=== PATIENT | female | born 1950 ===

== ENCOUNTER 2023-05-16 10:26 | Inpatient (IN) | payer MEDICARE, OTHER, SELFPAY ==
[2023-05-16] VITALS (18 sets, daily range): BP systolic 111–148; BP diastolic 47–82; PULSE 88–123; RESP 12; TEMP 34.8–37.1; O2SAT 88–100; BMI 17.6
--- NOTE | ~2023-05-16 | XR_ITS ---
EXAMINATION: XR CHEST CLINICAL INFORMATION: Cough COMPARISON: None available. TECHNIQUE: Frontal view of the chest was obtained. FINDINGS: Tracheostomy in place. Trace bilateral pleural effusions with subjacent atelectasis. Chronic interstitial lung markings. Flattening of the bilateral hemidiaphragms. Bilateral low lung volumes. No pneumothorax. Trachea is midline. Cardiac mediastinal silhouette is not enlarged. Aorta demonstrates atherosclerotic calcifications. Osseous structures are intact. Soft tissues are unremarkable. XR/XR chest 1V IMPRESSION: 1. Tracheostomy in place. 2. Trace bilateral pleural effusions with subjacent atelectasis. 3. Chronic interstitial lung markings. 4. Flattening of the bilateral hemidiaphragms. 5. Bilateral low lung volumes.
--- NOTE | 2023-05-16 11:03 | ECG_ITS ---
Test Reason : TACHY Blood Pressure : / mmHG Vent. Rate : 111 BPM Atrial Rate : 111 BPM P-R Int : 114 ms QRS Dur : 076 ms QT Int : 330 ms P-R-T Axes : 057 038 050 degrees QTc Int : 448 ms Poor data quality Sinus tachycardia RSR' or QR pattern in V1 suggests right ventricular conduction delay Nonspecific T wave abnormality Abnormal ECG When compared with ECG of 31-JAN-2006 06:35, Vent. rate has increased BY 46 BPM T wave amplitude has decreased in Inferior leads Referred By: Generic ED Physician Electronically Signed By:JONA MORAN MD
--- NOTE | 2023-05-16 11:32 | PC.NURSE ---
pt a&o, calm, and cooperative. pt comes from home where she lives with her son who is her primary caregiver. per EMS, 20G placed to pt's RAC and pt given 40 mcg Fentanyl for pain. pt with chronic tracheostomy, on own ventilator. is duck[place], better to speak directly into right ear. pt changed to hospital attire, placed on monitor, and pillows given BL under bottom for pt comfort. pt's trach was found to be covered in brown secretions. trach care completed by Elo respiratory therapist. pt found to be covered in multiple wounds and bruises. bruises to BL lower arms. wounds to BL LE, originally dressed, via wound care per pt, prior to arrival. this RN, Christine, and Nydia undressed all wounds for examination. worse wound to the pt's lateral left knee/thigh. there appears to be two 2x2's packed to wound to coccyx by unknown caregiver. ABD pad applied for pt comfort before MD examination. pt currently resting quietly. MD evaluated pt and examined pt wounds. labs drawn and sent. pt given warm blanket. call ochoa within pt reach. plan of care ongoing.
[2023-05-16 11:44] LABS: MANUAL DIFF FLAG NO
[2023-05-16 11:48] LABS: Basophils Percent Auto 0.2 % (0-2); Eosinophils Percent Auto 0.1 % (0-4); Hematocrit 31.8 % (37.0-47.0); Hemoglobin 8.5 g/dl (12.0-16.0); Imm Gran Abs Auto 0.13 X10*3/uL (0.00-0.03); Imm Gran Pct Auto 0.8 % (0.0-0.4); Lymphocytes Absolute Auto 0.5 X10*3/uL (1.2-4.9); Lymphocytes Percent Auto 2.7 % (20-40); Mean Corpuscular HGB Conc 26.7 g/dl (31.0-35.0); Mean Corpuscular Hemoglobin 20.7 pg (27.0-33.0); Mean Corpuscular Volume 77.4 fL (80.0-98.0); Mean Platelet Volume 8.5 fL (9.4-12.3); Monocytes Absolute Auto 1.1 X10*3/uL (0.1-1.2); Monocytes Percent Auto 6.4 % (2-11); Neutrophils Absolute Auto 15.1 x10*3/uL (2.0-8.3); Neutrophils Percent Auto 89.8 % (45-73); Platelet Count 475 X10*3/uL (160-400); Red Blood Count 4.11 X10*6/uL (4.20-5.50); Red Cell Distribution Width 23.7 % (11.0-16.0); White Blood Count 16.8 X10*3/uL (4.8-10.8)
[2023-05-16 11:57] LABS: Lactic Acid 0.9 mmol/L (0.5-2.0)
[2023-05-16 12:01] LABS: Anion Gap 14 (12-20); Blood Urea Nitrogen 10 mg/dL (9-16); Calcium 9.2 mg/dL (8.4-10.2); Carbon Dioxide 30 mmol/L (22-29); Chloride 101 mmol/L (96-108); Creatinine Clr Calc Pharmacy 66.1; Estimated Glomerular Filt Rate > 60; Glucose Random 122 mg/dL (60-115); Potassium 3.5 mmol/L (3.3-5.1); Sodium 141 mmol/L (135-145)
--- NOTE | 2023-05-16 12:24 | PC.RT ---
pt. arrived to ED from home via EMS. patient poor historian on trach and vent info. unknown how long patient has been trached and mechanically vented. Patient remains on home vent at this time in ED. Pt. currently has size 6 [place] TTS trach. sterile water needs to be used to fill trach cuff on this particular trach. Air CAN NOT be used to fill cuff. Trach care done, dressing, trach ties and in-line suction changed.
--- NOTE | 2023-05-16 12:39 | ED.GENADULT ---
HPI - General Adult General Chief complaint: Wound/Laceration Stated complaint: GLUTEAL SKIN BREAK DOWN,VENT DEPENDENT PER EMS Time Seen by Provider: 05/16/23 11:22 Source: patient and EMS Mode of arrival: EMS History of Present Illness HPI narrative: 73-year-old female who is brought in by EMS for worsening decubitus ulcer in the coccyx and also known to have been hospitalized at [facility] and discharged on 04/23 of this month. Patient reports that her wounds have worsened since having been at [facility]. She denies any fevers or chills and denies any difficulties with her current ventilator. Related Data Home Medications Medication Instructions Recorded Confirmed acetaminophen 300 mg-codeine 30 mg 1 tab PO Q4H PRN Pain 05/16/23 05/16/23 tablet furosemide 20 mg tablet 20 mg PO DAILY 05/16/23 05/16/23 lorazepam 0.5 mg tablet 0.5 mg PO Q6H PRN Anxiety 05/16/23 05/16/23 prednisone 20 mg tablet 20 mg PO DAILY PRN COPD 05/16/23 05/16/23 EXACERBATION silver sulfadiazine 1 % topical 1 appl topical BID 05/16/23 05/16/23 cream (Silvadene) zinc oxide 12 % topical cream 1 appl topical BID 05/16/23 05/16/23 Allergies Allergy/AdvReac Type Severity Reaction Status Date / Time penicillin V Allergy Unknown Verified 05/16/23 12:11 Review of Systems Review of Systems: Pertinent positives and negatives as stated in HPI PMFSH Past Medical History Source: nursing notes reviewed Social History Social History Smoked in Last 30 Days: No Use of substances other than those prescribed or required for medical reasons: No Advance Directives: Yes Advance Directives on File: Yes Advance Directives Date on File: 05/16/23 Physical Exam ED Vital Signs: Vital Signs - 24 hr 05/16/23 10:56 05/16/23 13:43 Temperature 98.7 F Pulse Rate 119 H Respiratory Rate 12 Blood Pressure 148/82 H Pulse Oximetry 100 Oxygen Delivery Method Mechanical Ventilation Trach Collar Fraction of Inspired Oxygen 40 BMI result Body Mass Index 17.6 VITAL SIGNS: Reviewed. GENERAL: Cachectic, well nourished, in no acute distress. HEAD: Normocephalic/atraumatic EYES: PERRLA, EOMI EARS: Ext canals without abnormality NOSE: Nares patent bilateral OROPHARYNX: no oral lesions noted, posterior pharynx clear NECK: Supple, no adenopathy LUNGS: Ventilated with patent trach. SpO2<100> CARDIOVASCULAR: Sinus tachycardic rate and rhythm without noted murmurs ABDOMEN: Soft, non-tender, non-distended with bowel sounds. Sacral occyx pressure wound with foul smell MUSCULOSKELETAL: No tenderness, deformities, or effusions noted on gross inspection. EXTREMITIES: No cyanosis, clubbing or edema. SKIN: Inspection of the skin reveals no rashes, significant ecchymosis noted on all 4 extremities, multiple skin tears located primarily on the lower extremities but the skin tear noted at the left lateral leg appears to be pretty extensive with a black eschar overlying NEUROLOGIC: Alert and oriented x 3. Strength and sensation to light touch were grossly intact x 4. Medications Administered Discontinued Medications Generic Name Dose Route Start Last Admin Trade Name Freq PRN Reason Stop Dose Admin Cefepime HCl 1 gm/ Sodium 50 mls @ 100 mls/hr 05/16/23 12:31 05/16/23 13:38 Chloride IV 05/16/23 13:00 Infused ONCE ONE Infusion Vancomycin HCl 750 mg/ Sodium 265 mls @ 265 mls/hr 05/16/23 12:40 05/16/23 13:40 Chloride IV 05/16/23 13:39 265 mls/hr ONCE ONE Administration Medical Decision Making Medical Decision Making [facility] Narrative: 1103: 73-year-old female with history and clinical presentation, DDX: sepsis, pressure wounds infected, pneumonia, UTI. I reviewed all investigations and hematologic indices are consistent with infection with leukocytosis and left shift, there is a microcytic anemia noted without overt signs of active bleeding. There is an elevated platelet count. Chemistry indices are negative for EDWIN and there is no electrolyte derangement. Urinalysis does demonstrate leukocyte esterase positivity with the presence of bacteria and appears to be a very clean sample. Patient also has extensor sacral coccyx pressure wound with a foul odor as well as pressure wound to the lateral aspect of the left lower leg that is a possible source as well. Patient has received cefepime as well as vancomycin in coverage. 1315: I discussed case with Dr. Pérez, the cloth stretcher, as patient will require placement in the ICU for being on the ventilator even though this is a chronic status. Throughout her stay here in the emergency room she has oxygen needed well and there been no ventilator associated issues. Respiratory therapy has assured that the trach is in good place, clean and working well. Dr. Pérez has accepted admission. Differential Diagnosis Differential Diagnoses: The differential diagnosis associated with the presentation includes Please see the discussion above Admission/Observation Consideration of admission/observation: Escalation of care including admission/observation considered Please see the discussion above Consult Healthcare Provider Management of the patient was discussed with: Benzene Washer Operator Please see the discussion above Lab Data MDM Lab Attestation statement: I reviewed the patient's lab results. Please see the discussion above 05/16/23 11:38 05/16/23 11:38 Labs: Lab Results 05/16/23 05/16/23 Range/Units 11:38 13:09 WBC 16.8 H (4.8-10.8) X10*3/uL RBC 4.11 L (4.20-5.50) X10*6/uL Hgb 8.5 L (12.0-16.0) g/dl Hct 31.8 L (37.0-47.0) % MCV 77.4 L (80.0-98.0) fL MCH 20.7 L (27.0-33.0) pg MCHC 26.7 L (31.0-35.0) g/dl RDW 23.7 H (11.0-16.0) % Plt Count 475 H (160-400) X10*3/uL MPV 8.5 L (9.4-12.3) fL Immature Gran % (Auto) 0.8 H (0.0-0.4) % Neut % (Auto) 89.8 H (45-73) % Lymph % (Auto) 2.7 L (20-40) % [place] % (Auto) 6.4 (2-11) % Eos % (Auto) 0.1 (0-4) % Baso % (Auto) 0.2 (0-2) % Lymph # (Auto) 0.5 L (1.2-4.9) X10*3/uL [place] # (Auto) 1.1 (0.1-1.2) X10*3/uL Eos # (Auto) 0.0 (0.0-0.4) X10*3/uL Baso # (Auto) 0.0 (0.0-0.2) X10*3/uL Abs Immat Gran (auto) 0.13 H (0.00-0.03) X10*3/uL Absolute Neuts (auto) 15.1 H (2.0-8.3) x10*3/uL Absolute Nucleated RBC 0.000 (0.0-0.012) X10*3/uL Nucleated RBC % (auto) 0.0 (0.0-0.2) /100WBC Sodium 141 (135-145) mmol/L Potassium 3.5 (3.3-5.1) mmol/L Chloride 101 (96-108) mmol/L Carbon Dioxide 30 H (22-29) mmol/L Anion Gap 14 (12-20) BUN 10 (9-16) mg/dL Creatinine 0.47 L (0.5-1.4) mg/dL Estim Creat Clear Calc 66.1 Estimated GFR > 60 Random Glucose 122 H (60-115) mg/dL Lactic Acid 0.9 (0.5-2.0) mmol/L Calcium 9.2 (8.4-10.2) mg/dL Urine Color Yellow Urine Appearance Clear Urine pH 7.0 (5.0-9.0) Ur Specific [place] 1.010 (1.005-1.025) Urine Protein Negative (Neg-Trace) mg/dL Urine Glucose (UA) Negative (Negative) mg/dL Urine Ketones 15 (Negative) mg/dL Urine Blood Negative (Negative) Urine Nitrite Negative (Negative) Ur Leukocyte Esterase Moderate (2+) H (Negative) Urine RBC 0-2 (0-2) /HPF Urine WBC 0-5 (0-5) /HPF Ur Squamous Epith Cells 0-2 (0-2) /HPF Urine Bacteria 2+ (None Seen) Hyaline Casts 0-2 (0-2) /LPF Independent Interpretation I performed an independent interpretation of an: EKG Interpretation: Sinus tachycardia, HR-111, no STEMI, [place]/QRS/QTC is within normal limits. Radiology Impression Radiologist Impression: CHEST XR is pending Critical Care Time Critical Care Time Critical Care Time: Yes Total Critical Care Time: 60 Attestation: I personally attest to this time spent taking care of the patient. Discharge Plan Discharge Clinical Impression: Sepsis, Decubitus ulcer, Urinary tract infection Patient Disposition: Admitted As Inpatient
[2023-05-16] MEDS: cefEPime HCl 1 GM in 0.9 % Sodium Chloride 50 ML IV (13:05)
--- NOTE | 2023-05-16 13:09 | PC.NURSE ---
pt difficult stick. multiple attempts for second set of cultures by multiple techs. 22G IV placed to the L wrist by CHARISMA Lawrence and second set of cultures obtained. slight delay in abx admin. abx now hanging per sep.
--- NOTE | 2023-05-16 13:11 | PC.NURSE ---
pt son at bedside. sts pt had trach placed in 2020.
[2023-05-16 13:18] LABS: Appearance Urine Clear; Color Urine Yellow; Glucose Urine UA Negative (Negative); Leukocyte Esterase Urine Moderate (2+) (Negative); Nitrite Urine Negative (Negative); UMIC TRIGGER UACC YES; Urine Blood Negative (Negative); Urine Ketones 15 mg/dL (Negative); Urine Protein Negative (Neg-Trace)
[2023-05-16 13:26] LABS: Bacteria Urine 2+ (None Seen); Hyaline Casts Urine 0-2 /LPF (0-2); RBC Urine 0-2 /HPF (0-2); Squamous Epithelial Cell Urine 0-2 /HPF (0-2); WBC Urine 0-5 /HPF (0-5)
[2023-05-16] MEDS: vancomycin HCL 750 MG in 0.9 % Sodium Chloride 250 ML 265 MG IV (13:40)
--- NOTE | 2023-05-16 14:09 | PM.CCHP ---
History of Present Illness Date of Service: 05/16/23 Attending physician on admission: Inez Pérez Chief Complaint: A deep sacral wound 73-year-old bed-bound female who is on a home ventilator ventilator dependent via a chronic tracheostomy which only gets changed once every 3 months it is an 6. Certainly with a blue cuff and is being cared for by a visiting nurse for the her wounds she has got a number of pressure ulcers on both legs but the deepest most worrisome is the say is the sacral wound which looks like it is a stage IV Longstanding now end-stage COPD ventilator dependent via tracheostomy She did not complain of a sense of fever or shaking chills but but does have a 17,000 white count and mild level of tachycardia but it she does even on the ventilator have a little bit of increased work of breathing not relative to her chronic state it is just her chronic illness there is no acute issue Bedside echo shows normal LV and RV size structure and function with no primary valve or pericardial disease Laboratory work a mean she is anemic hemoglobin about 8.5 Review of Systems Review of Systems: Yes all other systems are reviewed and are negative REPLACED BY [facility] Past Medical History Medical History (Updated 05/16/23 @ 14:57 by Inez Pérez MD) Ventilator dependent Tracheostomy dependence COPD (chronic obstructive pulmonary disease) Social History Social History Smoked in Last 30 Days: No Use of substances other than those prescribed or required for medical reasons: No Advance Directives: Yes Advance Directives on File: Yes Advance Directives Date on File: 05/16/23 Meds Allergies Allergy/AdvReac Type Severity Reaction Status Date / Time penicillin V Allergy Unknown Verified 05/16/23 12:11 Active Medications: Current Medications Lactated Ringer's (Lr) 1,146 mls @ 1,146 mls/hr 30 ml/kg infuse over 1 hr (1146 ml) IV .Q1H ONE Stop: 05/16/23 14:42 Vancomycin HCl 500 mg/ Sodium (Chloride) 110 mls @ 110 mls/hr IV Q12H BRITTNEY Meropenem 500 mg/ Sodium (Chloride) 50 mls @ 100 mls/hr IV Q8H [facility] Pharmacy Consult (Consult Rx Vancomycin Dosing) 1 each MISCELLANE DAILY PRN PRN Reason: Consult order Home Medications Medication Instructions Recorded Confirmed Last Taken Type Lactobacillus acidophilus 1 tab PO DAILY 05/16/23 05/16/23 05/15/23 History acetaminophen 300 mg-codeine 30 mg 1 tab PO Q4H PRN Pain 05/16/23 05/16/23 05/15/23 History tablet acetylcysteine 100 mg/mL (10 %) 4 ml inhalation BID PRN Secretions 05/16/23 05/16/23 Unknown History solution albuterol sulfate 2.5 mg/3 mL 2.5 mg inhalation QID 05/16/23 05/16/23 05/15/23 History (0.083 %) solution for nebulization arformoterol 15 mcg/2 mL solution 2 ml inhalation BID 05/16/23 05/16/23 05/15/23 History for nebulization atorvastatin 40 mg tablet (Lipitor) 40 mg PO DAILY 05/16/23 05/16/23 05/15/23 History azithromycin 500 mg tablet 500 mg PO Q OTHER DAY 05/16/23 05/16/23 05/15/23 History budesonide 1 mg/2 mL suspension 1 mg inhalation DAILY 05/16/23 05/16/23 05/15/23 History for nebulization (Pulmicort) cetirizine 10 mg tablet (Zyrtec) 10 mg PO DAILY 05/16/23 05/16/23 05/15/23 History clotrimazole-betamethasone 1 1 appl topical BID 05/16/23 05/16/23 Unknown History %-0.05 % topical cream collagenase clostridium histo. 250 1 appl topical DAILY 05/16/23 05/16/23 05/15/23 History unit/gram topical ointment (Santyl) furosemide 20 mg tablet 20 mg PO DAILY 05/16/23 05/16/23 05/15/23 History ipratropium 0.5 mg-albuterol 3 mg 3 ml inhalation Q6H PRN SHORTNESS 05/16/23 05/16/23 Unknown History (2.5 mg base)/3 mL nebulization OF BREATH OR WHEEZE soln levothyroxine 25 mcg tablet 25 mcg PO DAILY@0600 05/16/23 05/16/23 05/15/23 History (Synthroid) lorazepam 0.5 mg tablet 0.5 mg PO Q6H PRN Anxiety 05/16/23 05/16/23 05/15/23 History midodrine 10 mg tablet 10 mg PO TID 05/16/23 05/16/23 05/15/23 History prednisone 20 mg tablet 20 mg PO DAILY PRN COPD 05/16/23 05/16/23 Unknown History EXACERBATION silver sulfadiazine 1 % topical 1 appl topical BID 05/16/23 05/16/23 Unknown History cream (Silvadene) simethicone 125 mg chewable tablet 125 mg PO QID PRN FLATULENCE 05/16/23 05/16/23 Unknown History zinc oxide 12 % topical cream 1 appl topical BID 05/16/23 05/16/23 05/15/23 History Physical Exam Vital Signs: Vital Signs: Last Vital Signs Temp 98.7 F 05/16/23 10:56 Pulse 105 H 05/16/23 13:44 Resp 12 05/16/23 13:44 BP 123/71 05/16/23 13:44 Pulse Ox 100 05/16/23 13:44 O2 Del Method Trach Collar 05/16/23 13:44 FiO2 40 05/16/23 13:43 Oxygen Flow Rate 8 05/16/23 10:56 BMI result Body Mass Index 17.6 Awake with good cognitive function Somewhat tachypneic with some accessory muscle use despite support being supported on the vent Bedside echo with class 1 LV function Abdomen benign no organomegaly Deep very necrotic stage IV decubitus ulcer on the buttock and several on her legs but no surrounding cellulitis Results Labs 05/16/23 11:38 05/16/23 11:38 Labs: Laboratory Results - last 24 hr 05/16/23 05/16/23 11:38 13:09 MCV 77.4 L MCH 20.7 L MCHC 26.7 L RDW 23.7 H Plt Count 475 H MPV 8.5 L Immature Gran % (Auto) 0.8 H Neut % (Auto) 89.8 H Lymph % (Auto) 2.7 L [place] % (Auto) 6.4 Eos % (Auto) 0.1 Baso % (Auto) 0.2 Lymph # (Auto) 0.5 L [place] # (Auto) 1.1 Eos # (Auto) 0.0 Baso # (Auto) 0.0 Abs Immat Gran (auto) 0.13 H Absolute Neuts (auto) 15.1 H Absolute Nucleated RBC 0.000 Nucleated RBC % (auto) 0.0 Anion Gap 14 Estim Creat Clear Calc 66.1 Estimated GFR > 60 Random Glucose 122 H Lactic Acid 0.9 Calcium 9.2 Urine Color Yellow Urine Appearance Clear Urine pH 7.0 Ur Specific [place] 1.010 Urine Protein Negative Urine Glucose (UA) Negative Urine Ketones 15 Urine Blood Negative Urine Nitrite Negative Ur Leukocyte Esterase Moderate (2+) H Urine RBC 0-2 Urine WBC 0-5 Ur Squamous Epith Cells 0-2 Urine Bacteria 2+ Hyaline Casts 0-2 Assessment and Plan (1) Urinary tract infection: Status: Acute (2) Decubitus ulcer: Status: Acute (3) Sepsis: Status: Acute (4) COPD (chronic obstructive pulmonary disease): Status: Acute (5) Tracheostomy dependence: Status: Acute (6) Ventilator dependent: Status: Acute Plan Will admit and in the morning get surgical consult for surgical debridement possibly an eventual wound VAC but I think coverage with antibiotic therapy until then but the ventilator itself of course demands are presence in the ICU Time Spent With Patient Time: Total time managing care of this patient today _45___ minutes.
--- NOTE | 2023-05-16 14:30 | PHA.MEDREC ---
Pharmacy Consult ? Medication Reconciliation Pharmacy has completed the medication reconciliation. MED REC COMPLETE USING LIST PROVIDED BY SON. LIST WAS FROM DISCHARGE AT [facility] ON 05/03/23 BUT SON AMMENDED LIST WITH ANY CHANGES MADE SINCE THEN. SON IS PRIMARY CAREGIVER AND STATES LAST DOSE OF MEDICATIONS AT HOME WERE GIVEN 05/15/23.
[2023-05-16] MEDS: HYDROmorphone HCl 0.5 MG/0.5 ML SYRINGE 0.25 MG IVPUSH ×2 (16:55→21:34)
[2023-05-16] MEDS: Ketorolac Tromethamine 15 MG/ML VIAL IVPUSH (17:05)
--- NOTE | 2023-05-16 19:27 | HO.SKINPHOTO ---
1. 1. Location: Coccyx Category: PI Stage: unstageable Length: 5.0 Width: 8.0 Depth: unknown cm 2. 2. Location: left posterior leg/calf Category: venous stasis Stage: Length: 5.0 Width: 1.5 Depth: 0 cm 3. 3. Location: left anterior leg, distal to knee Category: venous stasis Stage: Length: 4.5 Width: 4.0 Depth: cm 4. 4. Location: left lateral knee Category: venous stasis Stage: Length: 9.0 Width: 5.0 Depth: cm 5. 5. Location: Right posterior leg/calf Category: venous stasis Stage: Length: 4.5 Width: 3.0 Depth: cm 6. 6. Location: right medial ankle Category: venous stasis Stage: Length: 3.5 Width: 3.0 Depth: cm 7. 7. Location: right neck, under trach collar. Raised area. Category: pressure injury, MDPI Stage: stage II Length: 5.0 Width: 3.5 Depth: cm 8. 8. Location: anterior neck Category: MDPI Stage: II Length: 1 Width: 1 Depth: cm 9. 9. Location: Right arm Category: skin tear Stage: Length: Width: Depth: cm
[2023-05-16] MEDS: LORazepam 2 MG/ML VIAL 0.5 MG IVPUSH (19:32)
[2023-05-16] MEDS: Albuterol Sulfate (0.083%) 2.5 MG/3 ML VIAL.NEB INHALE (20:42)
[2023-05-16] MEDS: Hydrocortisone Sod Succ/PF 100 MG VIAL 50 MG IVPUSH (21:03)
[2023-05-17] VITALS (35 sets, daily range): BP systolic 97–146; BP diastolic 54–96; PULSE 84–128; RESP 11–20; TEMP 34.3–36.9; O2SAT 88–100; BMI 19.0
[2023-05-17] MEDS: HYDROmorphone HCl 0.5 MG/0.5 ML SYRINGE 0.25 MG IVPUSH ×7 (00:36→23:09)
[2023-05-17] MEDS: LORazepam 2 MG/ML VIAL 0.5 MG IVPUSH ×4 (01:41→23:08)
[2023-05-17] MEDS: vancomycin HCL 750 MG in 0.9 % Sodium Chloride 250 ML 125 MG IV (01:42)
[2023-05-17 04:25] LABS: VBG Base Excess 9.6 mmol/L; VBG HCO3 35 mmol/L (22-26); VBG pCO2 52 mmHg; VBG pH 7.43 (7.32-7.43); VBG pO2 37 mmHg
[2023-05-17 04:36] LABS: Venous Blood Gas Refer to POC result
[2023-05-17 05:02] LABS: Basophils Percent Auto 0.1 % (0-2); Hematocrit 29.3 % (37.0-47.0); Hemoglobin 7.5 g/dl (12.0-16.0); Imm Gran Abs Auto 0.11 X10*3/uL (0.00-0.03); Imm Gran Pct Auto 0.7 % (0.0-0.4); Lymphocytes Absolute Auto 0.2 X10*3/uL (1.2-4.9); MANUAL DIFF FLAG SCAN; Mean Corpuscular HGB Conc 25.6 g/dl (31.0-35.0); Mean Corpuscular Hemoglobin 19.8 pg (27.0-33.0); Mean Corpuscular Volume 77.5 fL (80.0-98.0); Mean Platelet Volume 9.9 fL (9.4-12.3); Monocytes Absolute Auto 0.2 X10*3/uL (0.1-1.2); Monocytes Percent Auto 1.2 % (2-11); Neutrophils Absolute Auto 14.8 x10*3/uL (2.0-8.3); Platelet Count 352 X10*3/uL (160-400); Red Blood Count 3.78 X10*6/uL (4.20-5.50); Red Cell Distribution Width 24.1 % (11.0-16.0); SCAN SMEAR FLAG 1; White Blood Count 15.3 X10*3/uL (4.8-10.8)
[2023-05-17 05:18] LABS: Albumin Level 2.9 g/dL (3.5-5.0); Anion Gap 17 (12-20); Blood Urea Nitrogen 11 mg/dL (9-16); Calcium 9.5 mg/dL (8.4-10.2); Carbon Dioxide 25 mmol/L (22-29); Chloride 103 mmol/L (96-108); Creatinine Clr Calc Pharmacy 75.8; Estimated Glomerular Filt Rate > 60; Glucose Random 123 mg/dL (60-115); Magnesium 1.9 mg/dL (1.6-2.6); Phosphorus 3.1 mg/dL (2.7-4.5); Sodium 141 mmol/L (135-145)
[2023-05-17] MEDS: Levothyroxine Sodium 25 MCG TABLET PO (05:25)
[2023-05-17 05:36] LABS: SLIDE REVIEW VERIFIED
[2023-05-17] MEDS: Albumin Human 25 % 100 ML IV (06:24)
[2023-05-17] MEDS: Hydrocortisone Sod Succ/PF 100 MG VIAL 50 MG IVPUSH (07:47)
[2023-05-17] MEDS: Atorvastatin Calcium 40 MG TABLET PO (07:47)
[2023-05-17] MEDS: Budesonide 0.5 MG/2 ML AMPUL.NEB 1 MG INHALE (08:08)
[2023-05-17] MEDS: Albuterol Sulfate (0.083%) 2.5 MG/3 ML VIAL.NEB INHALE ×4 (08:08→20:34)
--- NOTE | 2023-05-17 10:01 | PM.CCPN ---
Subjective Subjective Date of Service: 05/17/23 Interval History: 73-year-old lady with underlying end-stage COPD home ventilatory support severe tracheostomy, multiple pressure ulcers admitted on 05/16/2023 with worsening decubitus ulcer. patient was started on empiric broad-spectrum antibiotics with cultures pending. Wound care and general surgery evaluations for debridement have been requested. No events overnight. Critical Care Time (minutes): 30 Physical Exam Vital Signs: Vital Signs: Last Vital Signs Temp 98.5 F 05/17/23 08:00 Pulse 93 05/17/23 09:00 Resp 15 05/17/23 09:00 BP 120/87 05/17/23 09:00 Pulse Ox 95 05/17/23 09:00 O2 Del Method Mechanical Ventil ation 05/17/23 09:00 FiO2 30 05/17/23 09:00 Oxygen Flow Rate 8 05/16/23 10:56 BMI result Body Mass Index 19.0 Const: General: no acute distress, alert and awake Eyes: Sclerae: sclerae normal EOM: EOMs intact bilaterally Neck: Neck: Yes no lymphadenopathy and Yes tracheostomy present ( trach on vent) Resp: Effort & Inspection: normal respiratory effort and no respiratory distress Auscultation: clear to auscultation bilaterally Cardio: Rate: tachycardic Rhythm: regular rhythm Heart sounds: no gallops, no murmurs and no rubs GI: Palpation (GI): Soft to palpation and Other GI palpation findings present ( Nontender) Auscultation: normal bowel sounds Extrem: General: Yes no pedal edema, No clubbing and No cyanosis Objective Data Labs 05/17/23 04:20 05/17/23 04:20 Labs: Laboratory Results - last 24 hr 05/16/23 05/16/23 05/17/23 11:38 13:09 04:20 WBC 16.8 H 15.3 H RBC 4.11 L 3.78 L Hgb 8.5 L 7.5 L Hct 31.8 L 29.3 L MCV 77.4 L 77.5 L MCH 20.7 L 19.8 L MCHC 26.7 L 25.6 L RDW 23.7 H 24.1 H Plt Count 475 H 352 D MPV 8.5 L 9.9 Immature Gran % (Auto) 0.8 H 0.7 H Neut % (Auto) 89.8 H 97.0 H Lymph % (Auto) 2.7 L 1.0 L [place] % (Auto) 6.4 1.2 L Eos % (Auto) 0.1 0.0 Baso % (Auto) 0.2 0.1 Lymph # (Auto) 0.5 L 0.2 L [place] # (Auto) 1.1 0.2 Eos # (Auto) 0.0 0.0 Baso # (Auto) 0.0 0.0 Abs Immat Gran (auto) 0.13 H 0.11 H Absolute Neuts (auto) 15.1 H 14.8 H Absolute Nucleated RBC 0.000 0.000 Nucleated RBC % (auto) 0.0 0.0 Smear Tech's Comments VERIFIED VBG pH 7.43 VBG pCO2 52 VBG pO2 37 VBG HCO3 35 H VBG O2 Saturation 66.0 VBG Base Excess 9.6 Sodium 141 141 Potassium 3.5 4.0 Chloride 101 103 Carbon Dioxide 30 H 25 Anion Gap 14 17 BUN 10 11 Creatinine 0.47 L 0.41 L Estim Creat Clear Calc 66.1 75.8 Estimated GFR > 60 > 60 Random Glucose 122 H 123 H Lactic Acid 0.9 Calcium 9.2 9.5 Phosphorus 3.1 Magnesium 1.9 Albumin 2.9 L Urine Color Yellow Urine Appearance Clear Urine pH 7.0 Ur Specific [place] 1.010 Urine Protein Negative Urine Glucose (UA) Negative Urine Ketones 15 Urine Blood Negative Urine Nitrite Negative Ur Leukocyte Esterase Moderate (2+) H Urine RBC 0-2 Urine WBC 0-5 Ur Squamous Epith Cells 0-2 Urine Bacteria 2+ Hyaline Casts 0-2 Progress Note: A&P Assessment and plan (1) Ventilator dependent: Status: Acute (2) COPD (chronic obstructive pulmonary disease): Status: Acute (3) Decubitus ulcer: Status: Acute Plan Assessment: 73-year-old lady with underlying advanced COPD on chronic ventilatory support admitted for worsening of underlying multiple pressure ulcers, now on empiric broad-spectrum antibiotics. Plan: Neuro: No acute issues. Cardiac: No acute issues. Pulmonary: Advanced ventilator dependent COPD. Continue ventilatory support via tracheostomy. Renal: No acute issues. Endo: No acute issues. GI: No acute issues. ID: Multiple pressure ulcers with particularly worse and coccygeal also. Wound care / general surgery evaluations requested. Cultures are pending. Continue broad-spectrum antibiotic. Heme/Onc: No acute issues. Psych: No acute issues. Miscellaneous: No acute issues. Prophylaxis: Heparin Diet: regular Critical care time spent: 30 minutes Quality Stroke Does the patient have a stroke diagnosis?: No VTE Prior VTE?: No VTE Risk Level:: Medical - moderate - high VTE Device Contraindication: N/A - Device Ordered VTE Drug Contraindication: Treatment Not Indicated
[2023-05-17] MEDS: Heparin Sodium,Porcine 5,000 UNIT/ML VIAL 5000 UNIT SUBCUT ×2 (10:34→16:56)
[2023-05-17] MEDS: levoFLOXacin/D5W 750 MG/150 ML PIGGYBACK 100 MG IV (10:38)
--- NOTE | 2023-05-17 11:29 | MHC.CM.PN ---
Pt in ICU w/ chronic vent and infected sacral wound: met w/pt and one of her home caregivers to review d/c needs: pt resides w/son, has EMERGENCY MANAGEMENT SYSTEM DIRECTOR care givers and VNA for wound care. Unknown VNA but RN is Maite at [phone]: message left inquiring on agency. has a chronic trach w/[employer] suppling O2 and supplies. She is bedbound (hospital bed) and has all needed DME per skin care consultant. Pt uses BLS for all transportation needs. Pt w/multiple skin impairment issues, fragile overall condition. HCP on file and verified: IMM in chart. D/C plan is for a return to home w/existing supports/services. BLS/ALS transport depending on [facility]'s policy.
--- NOTE | 2023-05-17 12:10 | P.CONGS_ITS ---
History of Present Illness Consult details Consult date: 05/17/23 Narrative: 73-year-old female patient with a history of COPD, ventilatory dependent with tracheostomy in place, presenting to the emergency department by EMS due to worsening skin wounds over multiple locations but most significantly in the sacral and coccyx regions. She was previously evaluated and treated in [facility] and subsequently discharged on 04/23/2023. Since this time wounds have increased in size and appear to require further debridement. She denies fever, chills, and is awake/alert, requiring ventilatory support. Per her family member no wounds were in noted on her back prior to admission to [facility]. Review of Systems 2 Review of Systems: Yes Unobtainable due to mental condition PMFSH Past Medical History Medical History Ventilator dependent Tracheostomy dependence COPD (chronic obstructive pulmonary disease) Social History Social History Household Members: Children Housing: House Do you presently have visiting nurse or other home services: Yes (Kostas LINDSEY) Patient Tobacco Use Status: Former Tobacco user Quit Date: 9 years ago Tobacco use type: Cigarette Advance Directives Date on File: 05/16/23 Meds Allergies Allergy/AdvReac Type Severity Reaction Status Date / Time penicillin V Allergy Unknown Verified 05/16/23 12:11 Active Medications: Current Medications Albuterol Sulfate (Albuterol Sulfate (0.083%) 2.5 Mg/3 Ml Vial.Neb) 2.5 mg INHALE QID [facility] Last Admin: 05/17/23 08:08 Dose: 2.5 mg Atorvastatin Calcium (Atorvastatin Calcium 40 Mg Tablet) 40 mg PO DAILY [facility] Last Admin: 05/17/23 07:47 Dose: 40 mg Budesonide (Budesonide 0.5 Mg/2 Ml Ampul.Neb) 1 mg INHALE DAILY [facility] Last Admin: 05/17/23 08:08 Dose: 1 mg Heparin Sodium (Porcine) (Heparin Sodium,Porcine 5,000 Unit/Ml Vial) 5,000 unit SUBCUT Q8H [facility] Last Admin: 05/17/23 10:34 Dose: 5,000 unit Hydromorphone HCl (Hydromorphone Hcl 0.5 Mg/0.5 Ml Syringe) 0.25 mg IVPUSH Q3H PRN; Protocol PRN Reason: Pain, Moderate(Pain Scale 4-6) Last Admin: 05/17/23 10:34 Dose: 0.25 mg Vancomycin HCl 750 mg/ Sodium (Chloride) 265 mls @ 265 mls/hr IV Q12H [facility] Last Infusion: 05/17/23 03:50 Dose: Infused Levofloxacin (Levaquin) 750 mg in 150 mls @ 100 mls/hr IV Q24H [facility] Last Admin: 05/17/23 10:38 Dose: 100 mls/hr Levothyroxine Sodium (Levothyroxine Sodium 25 Mcg Tablet) 25 mcg PO DAILY@0600 [facility] Last Admin: 05/17/23 05:25 Dose: 25 mcg Lorazepam (Lorazepam 2 Mg/Ml Vial) 0.5 mg IVPUSH Q6H PRN PRN Reason: Anxiety Last Admin: 05/17/23 09:51 Dose: 0.5 mg Pharmacy Consult (Consult Rx Vancomycin Dosing) 1 each MISCELLANE DAILY PRN PRN Reason: Consult order Home Medications Medication Instructions Recorded Confirmed Last Taken Type Lactobacillus acidophilus 1 tab PO DAILY 05/16/23 05/16/23 05/15/23 History acetaminophen 300 mg-codeine 30 mg 1 tab PO Q4H PRN Pain 05/16/23 05/16/23 05/15/23 History tablet acetylcysteine 100 mg/mL (10 %) 4 ml inhalation BID PRN Secretions 05/16/23 05/16/23 Unknown History solution albuterol sulfate 2.5 mg/3 mL 2.5 mg inhalation QID 05/16/23 05/16/23 05/15/23 History (0.083 %) solution for nebulization arformoterol 15 mcg/2 mL solution 2 ml inhalation BID 05/16/23 05/16/23 05/15/23 History for nebulization atorvastatin 40 mg tablet (Lipitor) 40 mg PO DAILY 05/16/23 05/16/23 05/15/23 History azithromycin 500 mg tablet 500 mg PO Q OTHER DAY 05/16/23 05/16/23 05/15/23 History budesonide 1 mg/2 mL suspension 1 mg inhalation DAILY 05/16/23 05/16/23 05/15/23 History for nebulization (Pulmicort) cetirizine 10 mg tablet (Zyrtec) 10 mg PO DAILY 05/16/23 05/16/23 05/15/23 History clotrimazole-betamethasone 1 1 appl topical BID 05/16/23 05/16/23 Unknown History %-0.05 % topical cream collagenase clostridium histo. 250 1 appl topical DAILY 05/16/23 05/16/23 05/15/23 History unit/gram topical ointment (Santyl) furosemide 20 mg tablet 20 mg PO DAILY 05/16/23 05/16/23 05/15/23 History ipratropium 0.5 mg-albuterol 3 mg 3 ml inhalation Q6H PRN SHORTNESS 05/16/23 05/16/23 Unknown History (2.5 mg base)/3 mL nebulization OF BREATH OR WHEEZE soln levothyroxine 25 mcg tablet 25 mcg PO DAILY@0600 05/16/23 05/16/23 05/15/23 History (Synthroid) lorazepam 0.5 mg tablet 0.5 mg PO Q6H PRN Anxiety 05/16/23 05/16/23 05/15/23 History midodrine 10 mg tablet 10 mg PO TID 05/16/23 05/16/23 05/15/23 History prednisone 20 mg tablet 20 mg PO DAILY PRN COPD 05/16/23 05/16/23 Unknown History EXACERBATION silver sulfadiazine 1 % topical 1 appl topical BID 05/16/23 05/16/23 Unknown History cream (Silvadene) simethicone 125 mg chewable tablet 125 mg PO QID PRN FLATULENCE 05/16/23 05/16/23 Unknown History zinc oxide 12 % topical cream 1 appl topical BID 05/16/23 05/16/23 05/15/23 History Physical Exam 2 Vital Signs: Vital Signs: Last Vital Signs Temp 98.5 F 05/17/23 08:00 Pulse 109 H 05/17/23 10:00 Resp 20 05/17/23 10:00 BP 123/86 05/17/23 10:00 Pulse Ox 93 05/17/23 10:00 O2 Del Method Mechanical Ventil ation 05/17/23 10:00 FiO2 30 05/17/23 10:00 Oxygen Flow Rate 8 05/16/23 10:56 BMI result Body Mass Index 19.0 Const: General: alert and anxious Nutritional Appearance: well nourished Neck: Other: Tracheostomy in place, dressing located Resp: Other: Breathing on vent Back/Spine/Pelvis: Other: Sacral/coccygeal decubitus ulcer measuring approximately 9 x 7 cm with an area of necrotic measuring approximately 4 cm in diameter in the central portion of the wound. Palpable coccyx is noted at the wound base with no overlying tissue appreciated. Surrounding subcutaneous tissue and reveal some mild fibrinous exudate but no necrotic tissue. The necrotic skin and subcutaneous tissue was excised using a scissors. Bony tissue is noted at the wound base. Back/spine/pelvis image: 1. 2. Necrotic tissue within the central po rtion of the decubitus ulcer. Results Labs 05/17/23 04:20 05/17/23 04:20 Labs: Abnormal lab results 05/16/23 05/17/23 Range/Units 13:09 04:20 WBC 15.3 H (4.8-10.8) X10*3/uL RBC 3.78 L (4.20-5.50) X10*6/uL Hgb 7.5 L (12.0-16.0) g/dl Hct 29.3 L (37.0-47.0) % MCV 77.5 L (80.0-98.0) fL MCH 19.8 L (27.0-33.0) pg MCHC 25.6 L (31.0-35.0) g/dl RDW 24.1 H (11.0-16.0) % Immature Gran % (Auto) 0.7 H (0.0-0.4) % Neut % (Auto) 97.0 H (45-73) % Lymph % (Auto) 1.0 L (20-40) % [place] % (Auto) 1.2 L (2-11) % Lymph # (Auto) 0.2 L (1.2-4.9) X10*3/uL Abs Immat Gran (auto) 0.11 H (0.00-0.03) X10*3/uL Absolute Neuts (auto) 14.8 H (2.0-8.3) x10*3/uL VBG HCO3 35 H (22-26) mmol/L Creatinine 0.41 L (0.5-1.4) mg/dL Random Glucose 123 H (60-115) mg/dL Albumin 2.9 L (3.5-5.0) g/dL Ur Leukocyte Esterase Moderate (2+) H (Negative) Short CBC 05/17/23 Range/Units 04:20 WBC 15.3 H (4.8-10.8) X10*3/uL Hgb 7.5 L (12.0-16.0) g/dl Hct 29.3 L (37.0-47.0) % Plt Count 352 D (160-400) X10*3/uL BMP 05/17/23 04:20 Sodium 141 Potassium 4.0 Chloride 103 Carbon Dioxide 25 BUN 11 Creatinine 0.41 L Calcium 9.5 Liver Function 05/17/23 Range/Units 04:20 Albumin 2.9 L (3.5-5.0) g/dL Urine 05/16/23 Range/Units 13:09 Urine Color Yellow Urine Appearance Clear Urine pH 7.0 (5.0-9.0) Ur Specific [place] 1.010 (1.005-1.025) Urine Protein Negative (Neg-Trace) mg/dL Urine Glucose (UA) Negative (Negative) mg/dL All other labs normal. Assessment and Plan (1) Decubitus ulcer: Qualifiers: Pressure injury location: sacral region Pressure injury stage: stage 4 Qualified Code(s): L89.154 - Pressure ulcer of sacral region, stage 4 Status: Acute (2) Ventilator dependent: Status: Acute Plan 73-year-old female patient with history of COPD, ventilator dependent, with a recent development of a sacral decubitus ulcer found to have areas of necrosis which were debrided today at the bedside. An area of skin and subcutaneous tissue was debrided measuring 4 x 4 cm. Minimal viable tissue was noted below with bone evident at the base of the wound suggestive of a stage IV ulceration. Recommend continuing local wound care with pressure reduction, rotation from side to side, and nutrition support. Wounds will be very difficult to heal given the patient's overall debilitated status. Time Spent With Patient Time: Total time managing care of this patient today ____ minutes. Procedures Date of Service Date of Service: 05/17/23
--- NOTE | 2023-05-17 13:55 | HE.PHANOTE ---
RE VANCO DOSING RENAL FUNCTION STABLE WITH SCR 0.41 TODAY. RANDOM LEVEL TODAY 11.0 BUT THIS IS ONLY AFTER 2 DOSES HAVE BEEN GIVEN. PT IS VERY TINY AND VERY SICK SO WE ARE UNSURE IF RENAL FUNCTION IS ACCURATELY DEPICTED WITH SCR. CONTINUE CURRENT REGIMEN AND RECHECK LEVEL 05/18 @1200
[2023-05-17] MEDS: vancomycin HCL 750 MG in 0.9 % Sodium Chloride 250 ML 265 MG IV (15:35)
--- NOTE | 2023-05-17 16:25 | HO.WOUND ---
Wound Consult: Initial 73yr old female admitted to [facility] on? 05/16/23 13:44- See progress notes and H&P for detailed history. Arrival to bedside pt was accompanied by her two Home PCT - they were able to provide valuable information during the consultation. They report the pt refused placement in her bed at home - they report she is in a recliner chair to sleep and during the day, but that she does own a hospital grade bed. They report she was advised to go in to the bed to aid in off loading but that she refuses. Additionally the patient had bedside debridement performed today to the Coccyx area by Dr. Strauss - see note for details. The patient has a number of wounds Present on Admission - some are resolving and some appear to be evolving. Inpt will continue to follow up while pt remains inpatient. Device related Unstageable Pressure Injury POA Measurements: See measurement details in charting Wound Bed: adherent yellow slough - moist Drainage / Odor: Scant serous drainage no odor noted Edges: ?irregular consisitent with trach tubing Bernadette wound: ?red blanchable intact thin fragile tissue No Induration, No Fluctuance, No Warmth Pain: Pt tolerated assessment Goals of Treatment: ? Moist wound healing and autolytic debridement Left Ankle - healed tissue healed abrasion - dry hyperpigmented tissue easily removed during cleaning to reveal intact tissue Left Lateral Knee - Unstageble Pressure Injury POA Measurements: See measurement details in charting Wound Bed: red moist wound bed - the inferior area of moist black wound bed pigmentation Drainage / Odor: serosang no odor noted Edges: ?irregular Bernadette wound: ? intact thin fragile tissue with noted ecchymosis No Induration, No Fluctuance, No Warmth Pain: Pt reports significant pain throughout assessment Goals of Treatment: ? Moist wound healing and autolytic debridement Left Medial Posterior Leg - Intact tissue after cleansing healed abrasion - dry hyperpigmented tissue easily removed during cleaning to reveal intact tissue Left posterior Leg - Intact tissue after cleansing healed abrasion - dry hyperpigmented tissue easily removed during cleaning to reveal intact tissue Right Arm Skin Tear Measurements: See measurement details in charting Wound Bed: partial thickness tissue loss with pale moist wound bed Drainage / Odor: Scant serosang no odor noted Edges: ?irregular Bernadette wound: ? purpura vs eccyhmosis No Induration, No Fluctuance, No Warmth Pain: Pt reports significant pain throughout assessment Goals of Treatment: ? Moist wound healing and autolytic debridement Right Neck - Device Related Stage 2 Pressure Injury POA Measurements: See measurement details in charting Wound Bed: red moist wound bed - clean Drainage / Odor: Scant serosang no odor noted Edges: ?irregular Bernadette wound: ? intact thin fragile tissue No Induration, No Fluctuance, No Warmth Pain: Pt reports significant pain throughout assessment Goals of Treatment: ? Moist wound healing and autolytic debridement Coccyx - Stage 4 Pressure Injury POA Measurements: See measurement details in charting Wound Bed: Palpable bone - necrotic yellow brown slough - bedside debridement performed by Dr. Strauss see note for details. Drainage / Odor: Scant serosang no odor noted Edges: ?irregular nonadherent Bernadette wound: ? red erythema - slow to angela No Induration, No Fluctuance, No Warmth Pain: Pt reports significant pain throughout assessment Goals of Treatment: ? Moist wound healing and autolytic debridement Right Lateral Leg - Intact after cleaning healed abrasion - dry hyperpigmented tissue easily removed during cleaning to reveal intact tissue Recommendations: 1. Turn and Reposition every 2 hours and as needed for patient comfort consider use of wedges available in the storeroom. 2. Off Load all bony prominences with use of pillows, wedges and heel boots. If up to chair limit sit time to 1 hr increments. 3. Monitor for incontinence and moisture control. 4. Provide adequate and supplemental nutrition. 5. Continue low air loss mattress. 6. Coccyx - Off Load Pressure - Cleanse and irrigate with saline. Apply Triad to periwound - pack wound bed with NS moist gauze, cover with dry gauze to fill space and cover with foam dressing. Change Daily and PRN. 7. Right Arm and Right Leg - Cleanse with NS. Apply skin prep to periwound. Apply double layer xeroform cover with dry gazue, ABD pad and gauze roll. Change Daily. 8. Right Neck - Cleanse with NS. Apply skin prep to periwound. Apply double layer xeroform cover with foam dressing to aid in off loading. Change Daily. 9. Trach Site - Cleanse with NS. Apply skin prep to periwound. Apply cut to size Durafiber AG cover with Hydrocolloid. Cover additionally with foam dressing to aid in off loading pressure. Change every 2 days. 10. Left Lateral Knee - Cleanse with NS. Apply skin prep to periwound. Apply Durafiber AG cover with dry gauze, ABD pad and gauze roll. Change Daily. 11. Bilateral Lower Legs - Cleanse with routine cleansing. Apply moisturizing lotion twice a day. Protect legs from friction and trauma. Elevate heels off of bed surface. Re-consult wound care Nurse for wound deterioration or wound changes.
[2023-05-18] VITALS (36 sets, daily range): BP systolic 98–144; BP diastolic 47–83; PULSE 87–127; RESP 12–29; TEMP 34.4–37; O2SAT 83–100
[2023-05-18] MEDS: vancomycin HCL 750 MG in 0.9 % Sodium Chloride 250 ML 125 MG IV ×2 (02:12→13:08)
[2023-05-18] MEDS: Heparin Sodium,Porcine 5,000 UNIT/ML VIAL 5000 UNIT SUBCUT ×3 (02:19→17:54)
[2023-05-18 04:41] LABS: VBG HCO3 37 mmol/L (22-26); VBG pCO2 43 mmHg; VBG pH 7.54 (7.32-7.43); VBG pO2 52 mmHg
[2023-05-18 04:43] LABS: Venous Blood Gas Refer to POC result
[2023-05-18 04:48] LABS: MANUAL DIFF FLAG NO
[2023-05-18 04:51] LABS: Basophils Percent Auto 0.2 % (0-2); Eosinophils Percent Auto 0.2 % (0-4); Hematocrit 25.2 % (37.0-47.0); Imm Gran Abs Auto 0.06 X10*3/uL (0.00-0.03); Imm Gran Pct Auto 0.5 % (0.0-0.4); Lymphocytes Absolute Auto 0.5 X10*3/uL (1.2-4.9); Lymphocytes Percent Auto 3.9 % (20-40); Mean Corpuscular HGB Conc 26.6 g/dl (31.0-35.0); Mean Corpuscular Hemoglobin 20.4 pg (27.0-33.0); Mean Corpuscular Volume 76.6 fL (80.0-98.0); Mean Platelet Volume 8.9 fL (9.4-12.3); Monocytes Absolute Auto 0.9 X10*3/uL (0.1-1.2); Monocytes Percent Auto 7.3 % (2-11); Neutrophils Percent Auto 87.9 % (45-73); Platelet Count 347 X10*3/uL (160-400); Red Blood Count 3.29 X10*6/uL (4.20-5.50); White Blood Count 12.5 X10*3/uL (4.8-10.8)
[2023-05-18 04:54] LABS: Hemoglobin 6.7 g/dl (12.0-16.0)
[2023-05-18 05:21] LABS: Anion Gap 13 (12-20); Blood Urea Nitrogen 8 mg/dL (9-16); Calcium 9.6 mg/dL (8.4-10.2); Carbon Dioxide 27 mmol/L (22-29); Chloride 103 mmol/L (96-108); Creatinine Clr Calc Pharmacy 87.6; Estimated Glomerular Filt Rate > 60; Glucose Random 69 mg/dL (60-115); Magnesium 1.8 mg/dL (1.6-2.6); Phosphorus 1.7 mg/dL (2.7-4.5); Potassium 3.1 mmol/L (3.3-5.1); Sodium 140 mmol/L (135-145)
[2023-05-18] MEDS: HYDROmorphone HCl 0.5 MG/0.5 ML SYRINGE 0.25 MG IVPUSH ×4 (06:51→19:17)
[2023-05-18] MEDS: Levothyroxine Sodium 25 MCG TABLET PO (06:52)
[2023-05-18] MEDS: Potassium Phosphate/NS 15 MMOL/250 ML PLAST..BAG 62.5 MMOL IV (06:53)
[2023-05-18] MEDS: LORazepam 2 MG/ML VIAL 0.5 MG IVPUSH ×3 (07:05→20:49)
[2023-05-18] MEDS: Albuterol Sulfate (0.083%) 2.5 MG/3 ML VIAL.NEB INHALE ×4 (07:20→20:03)
[2023-05-18] MEDS: Budesonide 0.5 MG/2 ML AMPUL.NEB 1 MG INHALE (07:21)
[2023-05-18] MEDS: Atorvastatin Calcium 40 MG TABLET PO (09:39)
[2023-05-18] MEDS: Albumin Human 25 % 100 ML IV ×3 (09:39→19:17)
[2023-05-18] MEDS: Lactulose 20 GM/30 ML SOLUTION 30 GM PO (10:33)
[2023-05-18] MEDS: Midazolam HCl/PF 2 MG/2 ML VIAL 0.5 MG IVPUSH (10:35)
[2023-05-18] MEDS: levoFLOXacin/D5W 750 MG/150 ML PIGGYBACK 100 MG IV (10:43)
[2023-05-18 12:19] LABS: Vancomycin Random 17.4 mcg/mL (15-20)
--- NOTE | 2023-05-18 15:32 | P.PNCC_ITS ---
Subjective Subjective Date of Service: 05/18/23 Interval History: 73-year-old lady with underlying end-stage COPD home ventilatory support severe tracheostomy, multiple pressure ulcers admitted on 05/16/2023 with worsening decubitus ulcer. Patient was started on empiric broad-spectrum antibiotics with cultures pending. Wound care and general surgery consulted with patient having bedside debridement of her stage IV coccygeal pressure ulcer. No events overnight. Critical Care Time (minutes): 30 Physical Exam 2 Vital Signs: Vital Signs: Last Vital Signs Temp 98.4 F 05/18/23 15:14 Pulse 116 H 05/18/23 15:14 Resp 12 05/18/23 15:14 BP 120/66 05/18/23 15:14 Pulse Ox 95 05/18/23 15:00 O2 Del Method Mechanical Ventil ation 05/18/23 15:00 FiO2 30 05/18/23 15:28 Oxygen Flow Rate 8 05/16/23 10:56 BMI result Body Mass Index 20.0 Const: General: no acute distress, alert and awake Eyes: Sclerae: sclerae normal EOM: EOMs intact bilaterally Neck: Neck: Yes no lymphadenopathy and Yes tracheostomy present ( tracheostomy on vent) Resp: Effort & Inspection: normal respiratory effort and no respiratory distress Auscultation: clear to auscultation bilaterally Cardio: Rate: tachycardic Rhythm: regular rhythm Heart sounds: no gallops, no murmurs and no rubs GI: Palpation (GI): Soft to palpation and Other GI palpation findings present ( Nontender) Auscultation: normal bowel sounds Extrem: General: Yes no pedal edema, No clubbing and No cyanosis Objective Data Labs 05/18/23 04:36 05/18/23 04:36 Labs: Laboratory Results - last 24 hr 05/18/23 05/18/23 05/18/23 04:35 04:36 05:47 WBC 12.5 H RBC 3.29 L Hgb 6.7 L* Hct 25.2 L MCV 76.6 L MCH 20.4 L MCHC 26.6 L RDW 23.0 H Plt Count 347 MPV 8.9 L Immature Gran % (Auto) 0.5 H Neut % (Auto) 87.9 H Lymph % (Auto) 3.9 L [place] % (Auto) 7.3 Eos % (Auto) 0.2 Baso % (Auto) 0.2 Lymph # (Auto) 0.5 L [place] # (Auto) 0.9 Eos # (Auto) 0.0 Baso # (Auto) 0.0 Abs Immat Gran (auto) 0.06 H Absolute Neuts (auto) 11.0 H Absolute Nucleated RBC 0.000 Nucleated RBC % (auto) 0.0 VBG pH 7.54 H VBG pCO2 43 VBG pO2 52 VBG HCO3 37 H VBG O2 Saturation 89.0 VBG Base Excess 14.0 Sodium 140 Potassium 3.1 L D Chloride 103 Carbon Dioxide 27 Anion Gap 13 BUN 8 L Creatinine 0.38 L Estim Creat Clear Calc 87.6 Estimated GFR > 60 Random Glucose 69 Calcium 9.6 Phosphorus 1.7 L Magnesium 1.8 Albumin 3.0 L Random Vancomycin Blood Type B Positive Antibody Screen NEGATIVE Crossmatch See Detail 05/18/23 12:03 WBC RBC Hgb Hct MCV MCH MCHC RDW Plt Count MPV Immature Gran % (Auto) Neut % (Auto) Lymph % (Auto) [place] % (Auto) Eos % (Auto) Baso % (Auto) Lymph # (Auto) [place] # (Auto) Eos # (Auto) Baso # (Auto) Abs Immat Gran (auto) Absolute Neuts (auto) Absolute Nucleated RBC Nucleated RBC % (auto) VBG pH VBG pCO2 VBG pO2 VBG HCO3 VBG O2 Saturation VBG Base Excess Sodium Potassium Chloride Carbon Dioxide Anion Gap BUN Creatinine Estim Creat Clear Calc Estimated GFR Random Glucose Calcium Phosphorus Magnesium Albumin Random Vancomycin 17.4 Blood Type Antibody Screen Crossmatch Microbiology Microbiology Results: Microbiology 05/16/23 13:00 Blood - Venous Blood Culture - Preliminary No growth after 48 hours. 05/16/23 11:38 Blood - Venous Blood Culture - Preliminary No growth after 48 hours. 05/16/23 Unknown Urine clean catch - Urine mendoza top Urine Culture - Final Progress Note: A&P Assessment and plan (1) Ventilator dependent: Status: Acute (2) COPD (chronic obstructive pulmonary disease): Status: Acute (3) Stage IV decubitus ulcer: Status: Acute Plan Assessment: 73-year-old lady with underlying advanced COPD on chronic ventilatory support admitted for worsening of underlying multiple pressure ulcers, now on empiric broad-spectrum antibiotics. Plan: Neuro: No acute issues. Cardiac: No acute issues. Pulmonary: Advanced ventilator dependent COPD. Continue ventilatory support via tracheostomy. Renal: No acute issues. Endo: No acute issues. GI: No acute issues. ID: Multiple pressure ulcers with stage IV coccygeal status post bedside debridement by General surgery. Wound care / general surgery services care appreciated. Cultures are pending. Continue broad-spectrum antibiotic. Heme/Onc: blood loss anemia secondary to oozing from pressure ulcer. Status post 1 unit of packed red blood cells. Continue to monitor hemoglobin level. Psych: No acute issues. Miscellaneous: No acute issues. Prophylaxis: Heparin Diet: regular Critical care time spent: 30 minutes Quality Stroke Does the patient have a stroke diagnosis?: No VTE Prior VTE?: No VTE Risk Level:: Medical - moderate - high VTE Device Contraindication: N/A - Device Ordered VTE Drug Contraindication: Treatment Not Indicated
--- NOTE | 2023-05-18 15:34 | MHC.CM.PN ---
Pt continues care in ICU: debridement at bedside: stage 5 sacral decub. On IV ATB. Referred to [facility] for possible extensive wound care and LT IV ATB as well as unusual trach. Requested LT IV access if pt requires IV ATB. CM to follow
--- NOTE | 2023-05-18 15:40 | P.CDIM_ITS ---
PROVIDER RESPONSE TEXT: To clarify, the appropriate diagnosis supported by the clinical indicators: After study (the condition) has been ruled out QUERY TEXT: PHYSICIAN'S DOCUMENTATION REQUEST Date of Query: 05/18/2023 07:53 AM EDT Patient Name: Gisela Galaviz Admit Date: 05/16/2023 Dear Miguel Strauss, A review of the medical record indicates additional documentation may be needed. Please review below and update the documentation accordingly. Clinical indicators: H&P: Assessment and plan: Sepsis ED: DDX - Sepsis, pressure wounds infected. infection with leukocytosis and left shift Cefepime and Vancomycin WBC 16.8 HR 126 Temp 98.7 Sepsis Systemic manifestations of infection, with 2 or more SIRS criteria which include: Fever > 100.4?F or hypothermia < 96.8?F Leukocytosis WBC > 12,000 or leukopenia, WBC < 4,000, or > 10% bands Tachycardia- > 90 beats/minute Tachypnea- RR > 20 breaths/minute or PaCO2 < 32mmHg Based on the above information and the recognized standard for sepsis, could you please clarify if th is diagnoses is still accurate and reflective of the patient's condition to ensure quality of the medical record. Sepsis is/was present and is a clinical diagnosis based on After study (the condition) has been ruled out Other (explain)Clinically unable to determine (explain)Thank you, Codi King, CCS, CDIS Use of terms such as suspected, likely, concern for, or probable (associated with a specific diagnosi s that is being evaluated, monitored, or treated as if it exists) are acceptable and can be coded in the inpatient se tting, when documented at the time of discharge. Please use your independent medical judgment in providing your response. THIS QUERY IS PART OF THE PERMANENT MEDICAL RECORD
[2023-05-19] VITALS (25 sets, daily range): BP systolic 111–150; BP diastolic 54–80; PULSE 81–127; RESP 12–20; TEMP 34.9–36.6; O2SAT 91–100; BMI 20.6
[2023-05-19] MEDS: Albumin Human 25 % 100 ML IV (01:12)
[2023-05-19] MEDS: vancomycin HCL 750 MG in 0.9 % Sodium Chloride 250 ML 250 MG IV (02:33)
[2023-05-19] MEDS: Heparin Sodium,Porcine 5,000 UNIT/ML VIAL 5000 UNIT SUBCUT ×2 (02:35→10:41)
[2023-05-19] MEDS: LORazepam 2 MG/ML VIAL 0.5 MG IVPUSH ×3 (04:36→15:55)
[2023-05-19] MEDS: HYDROmorphone HCl 0.5 MG/0.5 ML SYRINGE 0.25 MG IVPUSH ×3 (04:36→13:58)
[2023-05-19 04:40] LABS: VBG Base Excess 9.8 mmol/L; VBG HCO3 33 mmol/L (22-26); VBG pCO2 40 mmHg; VBG pH 7.52 (7.32-7.43); VBG pO2 81 mmHg
[2023-05-19 04:41] LABS: Venous Blood Gas Refer to POC result
[2023-05-19 05:03] LABS: MANUAL DIFF FLAG NO
[2023-05-19 05:06] LABS: Basophils Percent Auto 0.1 % (0-2); Eosinophils Percent Auto 0.5 % (0-4); Hematocrit 26.8 % (37.0-47.0); Hemoglobin 7.9 g/dl (12.0-16.0); Imm Gran Abs Auto 0.04 X10*3/uL (0.00-0.03); Imm Gran Pct Auto 0.5 % (0.0-0.4); Lymphocytes Absolute Auto 0.3 X10*3/uL (1.2-4.9); Lymphocytes Percent Auto 4.5 % (20-40); Mean Corpuscular HGB Conc 29.5 g/dl (31.0-35.0); Mean Corpuscular Volume 77.9 fL (80.0-98.0); Mean Platelet Volume 9.5 fL (9.4-12.3); Monocytes Absolute Auto 0.6 X10*3/uL (0.1-1.2); Monocytes Percent Auto 8.5 % (2-11); Neutrophils Absolute Auto 6.5 x10*3/uL (2.0-8.3); Neutrophils Percent Auto 85.9 % (45-73); Platelet Count 295 X10*3/uL (160-400); Red Blood Count 3.44 X10*6/uL (4.20-5.50); Red Cell Distribution Width 21.8 % (11.0-16.0); White Blood Count 7.6 X10*3/uL (4.8-10.8)
[2023-05-19] MEDS: Levothyroxine Sodium 25 MCG TABLET PO (05:08)
[2023-05-19 05:21] LABS: Alanine Aminotransferase 7 U/L (0-31); Albumin Level 4.2 g/dL (3.5-5.0); Alkaline Phosphatase 154 U/L (39-117); Anion Gap 14 (12-20); Aspartate Amino Transferase 14 U/L (5-31); Bilirubin Total 1.3 mg/dL (0.0-1.0); Blood Urea Nitrogen 4 mg/dL (9-16); Calcium 9.4 mg/dL (8.4-10.2); Carbon Dioxide 27 mmol/L (22-29); Chloride 104 mmol/L (96-108); Creatinine Clr Calc Pharmacy 87.6; Estimated Glomerular Filt Rate > 60; Glucose Random 71 mg/dL (60-115); Magnesium 1.7 mg/dL (1.6-2.6); Phosphorus 2.1 mg/dL (2.7-4.5); Potassium 2.7 mmol/L (3.3-5.1); Sodium 142 mmol/L (135-145); Total Protein 5.6 g/dL (6.5-8.0)
[2023-05-19] MEDS: Potassium Phosphate/NS 15 MMOL/250 ML PLAST..BAG 62.5 MMOL IV (06:18)
[2023-05-19] MEDS: Albuterol Sulfate (0.083%) 2.5 MG/3 ML VIAL.NEB INHALE ×3 (08:23→15:28)
[2023-05-19] MEDS: Budesonide 0.5 MG/2 ML AMPUL.NEB 1 MG INHALE (08:23)
[2023-05-19] MEDS: Lactulose 20 GM/30 ML SOLUTION PO (10:23)
[2023-05-19] MEDS: Potassium Chloride/H20 10 MEQ/100 ML PIGGYBACK 100 MEQ IV ×3 (10:23→13:20)
[2023-05-19] MEDS: Atorvastatin Calcium 40 MG TABLET PO (10:23)
[2023-05-19] MEDS: levoFLOXacin/D5W 750 MG/150 ML PIGGYBACK 100 MG IV (10:24)
--- NOTE | 2023-05-19 10:47 | MHC.CLN ---
F/U PT WITH INCREASED NUTRITION RISK R/T PRESSURE INJURY PO INTAKE 25% X 3 MEALS DIET RX: CHOPPED-APPROPRIATE PT'S CAREGIVER REPORTS PT PREFERS SOFT FOODS AT HOME; GOOD APPETITE PT RECEIVING GELATEIN TO PROMOTE WOUND HEALING SUPP PROVIDES 320KCALS, 40G PROTEIN MONITOR PO INTAKE AND SUPP ACCEPTANCE
--- NOTE | 2023-05-19 11:00 | PM.CCPN ---
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 The patient was started on broad-spectrum antibiotics. Blood cultures came back negative. Comment: 30 Physical Exam Vital Signs: Vital Signs: Last Vital Signs Temp 97.8 F 05/19/23 08:00 Pulse 119 H 05/19/23 10:00 Resp 15 05/19/23 10:00 BP 121/64 05/19/23 10:00 Pulse Ox 91 L 05/19/23 10:00 O2 Del Method Mechanical Ventil ation 05/19/23 10:00 FiO2 30 05/19/23 10:00 Oxygen Flow Rate 8 05/16/23 10:56 BMI result Body Mass Index 20.6 Const: General: no acute distress Orientation/consciousness: patient oriented x3 HEENT: Head: Yes normocephalic Throat: Yes uvula midline Eyes: Conjunctivae: conjunctivae normal Sclerae: sclerae normal Pupils: Equal, round and reactive pupils present EOM: EOMs intact bilaterally Neck: Neck: Yes tracheostomy present and Yes no JVD Resp: Effort & Inspection: normal respiratory effort and symmetric chest movement Auscultation: clear to auscultation bilaterally GI: Palpation (GI): Soft to palpation : General: Yes no CVA tenderness Back/Spine/Pelvis: Back: no CVA tenderness Skin: Other: Stage IV decubitus ulcer, skin c/d/i except for otherwise noted Neuro: General: patient oriented x3, moves all extremities, no focal motor deficits and CN's II-XI intact bilaterally Cranial nerves: Yes Equal, round and reactive pupils present Objective Data Labs 05/19/23 04:32 05/19/23 04:32 Labs: Laboratory Results - last 24 hr 05/18/23 05/18/23 05/19/23 05:47 12:03 04:32 WBC 7.6 RBC 3.44 L Hgb 7.9 L Hct 26.8 L MCV 77.9 L MCH 23.0 L MCHC 29.5 L RDW 21.8 H Plt Count 295 MPV 9.5 Immature Gran % (Auto) 0.5 H Neut % (Auto) 85.9 H Lymph % (Auto) 4.5 L [place] % (Auto) 8.5 Eos % (Auto) 0.5 Baso % (Auto) 0.1 Lymph # (Auto) 0.3 L [place] # (Auto) 0.6 Eos # (Auto) 0.0 Baso # (Auto) 0.0 Abs Immat Gran (auto) 0.04 H Absolute Neuts (auto) 6.5 Absolute Nucleated RBC 0.000 Nucleated RBC % (auto) 0.0 VBG pH VBG pCO2 VBG pO2 VBG HCO3 VBG O2 Saturation VBG Base Excess Sodium 142 Potassium 2.7 L Chloride 104 Carbon Dioxide 27 Anion Gap 14 BUN 4 L Creatinine 0.38 L Estim Creat Clear Calc 87.6 Estimated GFR > 60 Random Glucose 71 Calcium 9.4 Phosphorus 2.1 L Magnesium 1.7 Total Bilirubin 1.3 H AST 14 ALT 7 Alkaline Phosphatase 154 H Total Protein 5.6 L Albumin 4.2 Random Vancomycin 17.4 Blood Type B Positive Antibody Screen NEGATIVE Crossmatch See Detail 05/19/23 04:34 WBC RBC Hgb Hct MCV MCH MCHC RDW Plt Count MPV Immature Gran % (Auto) Neut % (Auto) Lymph % (Auto) [place] % (Auto) Eos % (Auto) Baso % (Auto) Lymph # (Auto) [place] # (Auto) Eos # (Auto) Baso # (Auto) Abs Immat Gran (auto) Absolute Neuts (auto) Absolute Nucleated RBC Nucleated RBC % (auto) VBG pH 7.52 H VBG pCO2 40 VBG pO2 81 VBG HCO3 33 H VBG O2 Saturation 99.0 VBG Base Excess 9.8 Sodium Potassium Chloride Carbon Dioxide Anion Gap BUN Creatinine Estim Creat Clear Calc Estimated GFR Random Glucose Calcium Phosphorus Magnesium Total Bilirubin AST ALT Alkaline Phosphatase Total Protein Albumin Random Vancomycin Blood Type Antibody Screen Crossmatch Microbiology Microbiology Results: Microbiology 05/16/23 13:00 Blood - Venous Blood Culture - Preliminary No growth after 48 hours. 05/16/23 11:38 Blood - Venous Blood Culture - Preliminary No growth after 48 hours. 05/16/23 Unknown Urine clean catch - Urine mendoza top Urine Culture - Final Progress Note: A&P Assessment and plan Plan Neurologic: Patient has a history of health care related anxiety. Patient receiving Ativan 0.5 mg PRN every six hours for anxiety however has not had any anxiousness thus far. Cardiovascular: no acute issues at this time. Respiratory: patient has a history of end-stage COPD and has a tracheostomy and is ventilator dependent residing at a nursing home care facility. The patient is on ACVC, rate of 12, PEEP of5 , FiO2 of 30 and tidal volume of 350. Oxygen saturation being maintained around 92%. Chest x-ray performed demonstrated no abnormalities. The patient will be continued on their mechanical ventilation as they are ventilator dependent. They are also receiving budesonide and albuterol for COPD chronic management. These have both been continued as well. Patient is also seen by pulmonology, see their note for further details. Gastrointestinal: no acute issues at this time. Renal/Genitourinary: no acute issues at this time Hematology: the patient has a normocytic anemia related to blood loss. The blood loss has been from the decubitus pressure ulcer. The patient received one unit of packed red blood cells upon admission. Currently the hemoglobin is at 7.9 and a hematocrit of 26.8. We will continue to monitor with a transfusion threshold of a hemoglobin of 7. Infectious disease: the patient has extensive decubitus ulceration. Broad-spectrum antibiotics were started due to the severity of the decubitus ulcer. According to IDSA, recommendations for antimicrobial therapy for suspected skin and soft tissue infection with deep involvement is a combination of vancomycin, Cefepime, and metronidazole. However due to the patient?s risk for ESBL, it is recommended to use meropenem in combination with vancomycin plus or minus cefepime. Currently, the patient is receiving vancomycin, cefepime, and meropenem. We will continue this recommended regimen for a six week course. This is given that the patient has undergone surgical debridement and there is no anticipated wound closure. We are still awaiting final word from surgery however this is the suspected case for this patient. Endocrine: no acute issues at this time. Integumentary: the patient has a stage IV decubitus pressure ulcer. Please see chart for picture and measurement details. Debridement was performed by general surgery on 05/18.The patient is afebrile, without a leukocytosis, and there is no suspicion for an infection at this moment in time. A wound care consult was put in and their recommendations are as follows: turning and repositioning every two hours, offloading bony prominences, maintaining incontinence and moisture control, adequate nutrition,and low air loss mattress. Please see wound care note for wound site care details. Quality Stroke Does the patient have a stroke diagnosis?: No VTE Prior VTE?: No VTE Risk Level:: Medical - moderate - high VTE Device Contraindication: N/A - Device Ordered VTE Drug Contraindication: Treatment Not Indicated
[2023-05-19 12:31] LABS: Vancomycin Random 18.6 mcg/mL (15-20)
--- NOTE | 2023-05-19 12:50 | P.CDIM_ITS ---
PROVIDER RESPONSE TEXT: To clarify, the appropriate diagnosis supported by the clinical indicators: Acute blood loss anemia QUERY TEXT: PHYSICIAN'S DOCUMENTATION REQUEST Date of Query: 05/19/2023 07:43 AM EDT Patient Name: Gisela Galaviz Admit Date: 05/16/2023 Dear Miguel Strauss, A review of the medical record indicates additional documentation may be needed. Please review below and update the documentation accordingly. Clinical Indicators: ICU progress note - Heme/Onc: blood loss anemia secondary to oozing from pressure ulcer. Status post 1 unit of packed red blood cells. Based on the above, could you clarify which of the following is the most likely acuity of the anemia Acute blood loss anemia Other specific Other (explain)Clinically unable to determine (explain)Thank you, Codi King, CCS, CDIS Use of terms such as suspected, likely, concern for, or probable (associated with a specific diagnosi s that is being evaluated, monitored, or treated as if it exists) are acceptable and can be coded in the inpatient se tting, when documented at the time of discharge. Please use your independent medical judgment in providing your response. THIS QUERY IS PART OF THE PERMANENT MEDICAL RECORD
--- NOTE | 2023-05-19 12:50 | P.CDIM_ITS ---
PROVIDER RESPONSE TEXT: To clarify, the appropriate diagnosis supported by the clinical indicators: Pressure (decubitus) ulcer anterior neck, unstageable QUERY TEXT: PHYSICIAN'S DOCUMENTATION REQUEST Date of Query: 05/18/2023 08:08 AM EDT Patient Name: Gisela Galaviz Admit Date: 05/16/2023 Dear Miguel Strauss, A review of the medical record indicates additional documentation may be needed. Please review below and update the documentation accordingly. Clinical Indicators: Wound care notes 05/17 - Device related unstageable pressure injury POA Wound care nursing notes 05/17 - Pressure injury anterior neck, unstageable (device related) adherent yellow slough moist wound healing and autolytic debridement foam dressing. Based on the above, could you please provide further information regarding the ulcer/wound: Pressure (decubitus) ulcer anterior neck, unstageable Other please specify Other (explain)Clinically unable to determine (explain)Thank you, Codi King, CCS, CDIS Use of terms such as suspected, likely, concern for, or probable (associated with a specific diagnosi s that is being evaluated, monitored, or treated as if it exists) are acceptable and can be coded in the inpatient se tting, when documented at the time of discharge. Please use your independent medical judgment in providing your response. THIS QUERY IS PART OF THE PERMANENT MEDICAL RECORD
--- NOTE | 2023-05-19 13:07 | P.DS_ITS ---
DS: Providers Provider Date of Service: 05/19/23 Date of admission: 05/16/23 13:44 Date of discharge: 05/19/23 Primary care physician: Zeina Call MD Consults: 05/16/23 19:01 Consult to Wound Care Routine Reason for consultation: Multiple Skin Integrity Concerns 05/17/23 08:33 Consult to General Surgery Routine Consulting Provider: [facility] [place] [facility] Reason for consultation: Pressure ulcers debridement Has provider been notified: No DS: Diagnosis Discharge Diagnosis (1) Ventilator dependent: Status: Acute (2) COPD (chronic obstructive pulmonary disease): Status: Acute (3) Stage IV decubitus ulcer: Status: Acute DS: Summary Hospital Course Hospital Course: 73-year-old lady with underlying end-stage COPD home ventilatory support severe tracheostomy, multiple pressure ulcers admitted on 05/16/2023 with worsening decubitus ulcer. Patient was started on empiric broad-spectrum antibiotics with cultures pending. Wound care and general surgery consulted with patient having bedside debridement of her stage IV coccygeal pressure ulcer. Cultures negative to date. Patient is essentially at her baseline. Status at Discharge Functional status at discharge: bed bound Time Attestation Discharge coordination time: Greater than 30 minutes Quality: Safe Use of Opioids Does Pt have an Active Cancer Diagnosis on the Problem List?: No Quality: Stroke Does the patient have a stroke diagnosis?: No Physical Exam Vital Signs: Vital Signs: Last Vital Signs Temp 97.8 F 05/19/23 08:00 Pulse 123 H 05/19/23 13:00 Resp 12 05/19/23 13:00 BP 111/59 L 05/19/23 13:00 Pulse Ox 98 05/19/23 13:00 O2 Del Method Mechanical Ventil ation 05/19/23 13:00 FiO2 30 05/19/23 13:00 Oxygen Flow Rate 8 05/16/23 10:56 BMI result Body Mass Index 20.6 Const: General: no acute distress, alert and awake Nutritional Appearance: thin Eyes: Sclerae: sclerae normal EOM: EOMs intact bilaterally Neck: Neck: Yes no lymphadenopathy and Yes tracheostomy present (On ventilatory support) Resp: Effort & Inspection: normal respiratory effort and no respiratory distress Auscultation: clear to auscultation bilaterally Cardio: Rate: tachycardic Rhythm: regular rhythm Heart sounds: no gallops, no murmurs and no rubs GI: Palpation (GI): Soft to palpation and Other GI palpation findings present ( Nontender) Auscultation: normal bowel sounds Extrem: General: Yes no pedal edema, No clubbing and No cyanosis DS: Data Data Completed and Pending Labs on day of discharge: Laboratory Results - last 24 hr 05/18/23 05/19/23 05/19/23 05:47 04:32 04:34 WBC 7.6 RBC 3.44 L Hgb 7.9 L Hct 26.8 L MCV 77.9 L MCH 23.0 L MCHC 29.5 L RDW 21.8 H Plt Count 295 MPV 9.5 Immature Gran % (Auto) 0.5 H Neut % (Auto) 85.9 H Lymph % (Auto) 4.5 L [place] % (Auto) 8.5 Eos % (Auto) 0.5 Baso % (Auto) 0.1 Lymph # (Auto) 0.3 L [place] # (Auto) 0.6 Eos # (Auto) 0.0 Baso # (Auto) 0.0 Abs Immat Gran (auto) 0.04 H Absolute Neuts (auto) 6.5 Absolute Nucleated RBC 0.000 Nucleated RBC % (auto) 0.0 VBG pH 7.52 H VBG pCO2 40 VBG pO2 81 VBG HCO3 33 H VBG O2 Saturation 99.0 VBG Base Excess 9.8 Sodium 142 Potassium 2.7 L Chloride 104 Carbon Dioxide 27 Anion Gap 14 BUN 4 L Creatinine 0.38 L Estim Creat Clear Calc 87.6 Estimated GFR > 60 Random Glucose 71 Calcium 9.4 Phosphorus 2.1 L Magnesium 1.7 Total Bilirubin 1.3 H AST 14 ALT 7 Alkaline Phosphatase 154 H Total Protein 5.6 L Albumin 4.2 Random Vancomycin Blood Type B Positive Antibody Screen NEGATIVE Crossmatch See Detail 05/19/23 12:13 WBC RBC Hgb Hct MCV MCH MCHC RDW Plt Count MPV Immature Gran % (Auto) Neut % (Auto) Lymph % (Auto) [place] % (Auto) Eos % (Auto) Baso % (Auto) Lymph # (Auto) [place] # (Auto) Eos # (Auto) Baso # (Auto) Abs Immat Gran (auto) Absolute Neuts (auto) Absolute Nucleated RBC Nucleated RBC % (auto) VBG pH VBG pCO2 VBG pO2 VBG HCO3 VBG O2 Saturation VBG Base Excess Sodium Potassium Chloride Carbon Dioxide Anion Gap BUN Creatinine Estim Creat Clear Calc Estimated GFR Random Glucose Calcium Phosphorus Magnesium Total Bilirubin AST ALT Alkaline Phosphatase Total Protein Albumin Random Vancomycin 18.6 Blood Type Antibody Screen Crossmatch Preliminary micro results at discharge 05/16/23 13:00 Blood Culture - Preliminary Blood - Venous No growth after 48 hours. 05/16/23 11:38 Blood Culture - Preliminary Blood - Venous No growth after 48 hours. Discharge Plan Discharge Anticipated Discharge Date/Time: 05/19/23 17:45 Patient Disposition: Home Health Service Discharge Diagnosis: Stage IV sacral decubitus ulcer Referrals: [facility] [Outside] - 3-5 Days ([facility] Zeina Call MD [Primary Care Provider] - 1 Week Discharge Medications: Continued prednisone 20 mg Tablet 20 mg PO DAILY PRN (Reason: COPD EXACERBATION) acetaminophen-codeine 300-30 mg Tablet 1 tab PO Q4H PRN (Reason: Pain) lorazepam 0.5 mg Tablet 0.5 mg PO Q6H PRN (Reason: Anxiety) furosemide 20 mg Tablet 20 mg PO DAILY zinc oxide 12 % Cream 1 appl TOPICAL BID silver sulfadiazine [Silvadene] 1 % Cream 1 appl TOPICAL BID Rx Instructions: apply a 1.5 mm thickness atorvastatin [Lipitor] 40 mg Tablet 40 mg PO DAILY cetirizine [Zyrtec] 10 mg Tablet 10 mg PO DAILY levothyroxine [Synthroid] 25 mcg Tablet 25 mcg PO DAILY@0600 clotrimazole-betamethasone 1-0.05 % Cream 1 appl TOPICAL BID budesonide [Pulmicort] 1 mg/2 mL Suspension For Nebulization 1 mg INHALATION DAILY ipratropium-albuterol 0.5 mg-3 mg(2.5 mg base)/3 mL solution for nebulization 3 ml inhalation Q6H PRN (Reason: SHORTNESS OF BREATH OR WHEEZE) albuterol sulfate 2.5 mg /3 mL (0.083 %) solution for nebulization 2.5 mg inhalation QID acetylcysteine 100 mg/mL (10 %) solution 4 ml inhalation BID PRN (Reason: Secretions) simethicone 125 mg Tablet,Chewable 125 mg PO QID PRN (Reason: FLATULENCE) Santyl 250 unit/gram Ointment 1 appl TOPICAL DAILY Protocol: Apply to: Apply to: NECROTIC SKIN Rx Instructions: USE TO COVER AREA OF NECTORIC SKIN ONCE DAILY midodrine 10 mg tablet 10 mg PO TID azithromycin 500 mg tablet 500 mg PO Q OTHER DAY Rx Instructions: TRACHEOSTOMY Lactobacillus acidophilus Tablet,Chewable 1 tab PO DAILY arformoterol 15 mcg/2 mL solution for nebulization 2 ml inhalation BID Discharge Orders: Discharge Order (Routine); Ordered 05/19/23 Ordered By: Miguel Strauss Activity on Discharge: Bedrest Stand Alone Forms: Patient Portal Discharge page Care Plan Goals: Improvement in nutritional status and antigrvity physical therapy for better chance of healing of pressure ulcers. Health Concerns: Advanced COPD on ventilatory support via tracheostomy with significant deconditioning resulting in pressure ulcers Plan of Treatment: Improvement in nutritional status and antigrvity physical therapy for better chance of healing of pressure ulcers. Assessment: Advanced COPD on ventilatory support via tracheostomy with significant deconditioning resulting in pressure ulcers
--- NOTE | 2023-05-19 13:48 | MHC.CM.PN ---
DP: PT HAS BEEN MEDICALLY CLEARED FOR DC HOME VIA ALS TRANSPORT AT 5:30 PM. SON/HCP MARGO UPDATED ON TODAY'S DC WELL CAREGIVER [facility] AT BEDSIDE. [facility] UPDATED. ALL HOME SERVICES TO RESUME ON DC. RN UPDATED.
== END 2023-05-19 18:27 | disposition home health service (06) | DRG 264 ==
LOC: HO.ED 11:29 → HO.EDOVER 13:55 → HO.ICU 14:28
PROVIDERS: Nurse Practitioner Family; Admitting Provider Internal Medicine Cardiovascular Disease; Emergency Provider Student in an Organized Health Care Education/Training Program; PCP Internal Medicine; Visit Provider Internal Medicine Pulmonary Disease
DX: I96 Gangrene, not elsewhere classified (principal); L89.154 Pressure ulcer of sacral region, stage 4; N39.0 Urinary tract infection, site not specified; Z99.11 Dependence on respirator [ventilator] status; D62 Acute posthemorrhagic anemia; L89.890 Pressure ulcer of other site, unstageable; J44.9 Chronic obstructive pulmonary disease, unspecified; Z93.0 Tracheostomy status; Z87.891 Personal history of nicotine dependence; Z79.890 Hormone replacement therapy; Z79.899 Other long term (current) drug therapy
CPT/HCPCS: 36415; 71045; 80048; 80053; 80202; 81001; 82040; 82803; 83605; 83735; 84100; 85025; 86850; 86900; 86901; 86923; 87040; 87086; 93005; 94002; 94003; 94640; 99285; J0692; J1170; J1643; J1885; J1956; J2060; J2185; J2250; J3370; P9016; P9047

== ENCOUNTER → 2023-05-16 13:44 | Outpatient (BNV) | payer MEDICARE, SELFPAY | PROVIDERS: Admitting Provider Internal Medicine Cardiovascular Disease; Emergency Provider Student in an Organized Health Care Education/Training Program; PCP Internal Medicine; Visit Provider Surgery | DX: L89.154 Pressure ulcer of sacral region, stage 4 (principal); Z99.11 Dependence on respirator [ventilator] status | CPT/HCPCS: 11042; 99222 ==

== ENCOUNTER → 2023-05-16 13:44 | Outpatient (BNV) | payer MEDICARE, SELFPAY | PROVIDERS: Admitting Provider Internal Medicine Cardiovascular Disease; Emergency Provider Student in an Organized Health Care Education/Training Program; PCP Internal Medicine; Visit Provider Internal Medicine Cardiovascular Disease | DX: L89.90 Pressure ulcer of unspecified site, unspecified stage (principal); A41.9 Sepsis, unspecified organism; J44.9 Chronic obstructive pulmonary disease, unspecified; Z93.0 Tracheostomy status; N39.0 Urinary tract infection, site not specified; Z99.11 Dependence on respirator [ventilator] status | CPT/HCPCS: 99291 ==

== ENCOUNTER → 2023-05-16 13:44 | Outpatient (BNV) | payer MEDICARE, SELFPAY | PROVIDERS: Admitting Provider Internal Medicine Cardiovascular Disease; Emergency Provider Student in an Organized Health Care Education/Training Program; PCP Internal Medicine; Visit Provider Internal Medicine Pulmonary Disease | DX: J44.9 Chronic obstructive pulmonary disease, unspecified (principal); Z99.11 Dependence on respirator [ventilator] status; L89.94 Pressure ulcer of unspecified site, stage 4 | CPT/HCPCS: 99239; 99291 ==

== ENCOUNTER 2023-06-07 14:12 | Outpatient (REF) | payer MEDICARE, SELFPAY ==
[2023-06-07 14:18] LABS: Basophils Percent Auto 0.1 % (0-2); Hematocrit 36.6 % (37.0-47.0); Hemoglobin 10.5 g/dl (12.0-16.0); Imm Gran Abs Auto 0.22 X10*3/uL (0.00-0.03); Imm Gran Pct Auto 0.9 % (0.0-0.4); Lymphocytes Absolute Auto 0.3 X10*3/uL (1.2-4.9); Lymphocytes Percent Auto 1.1 % (20-40); MANUAL DIFF FLAG SCAN; Mean Corpuscular HGB Conc 28.7 g/dl (31.0-35.0); Mean Corpuscular Volume 76.7 fL (80.0-98.0); Mean Platelet Volume 9.5 fL (9.4-12.3); Monocytes Absolute Auto 1.1 X10*3/uL (0.1-1.2); Monocytes Percent Auto 4.5 % (2-11); Neutrophils Absolute Auto 23.2 x10*3/uL (2.0-8.3); Neutrophils Percent Auto 93.4 % (45-73); Platelet Count 505 X10*3/uL (160-400); Red Blood Count 4.77 X10*6/uL (4.20-5.50); Red Cell Distribution Width 20.9 % (11.0-16.0); SCAN SMEAR FLAG 1; White Blood Count 24.9 X10*3/uL (4.8-10.8)
[2023-06-07 15:31] LABS: SLIDE REVIEW VERIFIED
== END 2023-06-07 14:13 | disposition home or self-care (01) ==
LOC: HO.HVNA 14:12
PROVIDERS: Visit Provider Internal Medicine
DX: D50.9 Iron deficiency anemia, unspecified (principal)
CPT/HCPCS: 36415; 85025

== ENCOUNTER 2023-08-03 12:20 | Outpatient (REF) | payer MEDICARE, SELFPAY | END 2023-08-03 12:21 | disposition home or self-care (01) | LOC: HO.HVNA 12:20 | PROVIDERS: Visit Provider Internal Medicine Critical Care Medicine | DX: Z93.0 Tracheostomy status (principal) | CPT/HCPCS: 87070; 87077; 87186; 87205 ==

== ENCOUNTER 2023-08-05 14:32 | Outpatient (REF) | payer MEDICARE, SELFPAY | END 2023-08-05 14:33 | disposition home or self-care (01) | LOC: HO.HVNA 14:32 | PROVIDERS: Visit Provider Internal Medicine Critical Care Medicine | DX: J44.1 Chronic obstructive pulmonary disease with (acute) exacerbation (principal) | CPT/HCPCS: 87070; 87077; 87186; 87205 ==

== ENCOUNTER 2023-11-11 12:04 | Outpatient (REF) | payer MEDICARE, SELFPAY ==
[2023-11-11 12:13] LABS: Appearance Urine Turbid; Color Urine Yellow; Glucose Urine UA Negative (Negative); Leukocyte Esterase Urine Moderate (2+) (Negative); Nitrite Urine Negative (Negative); PH 7.5 (5.0-9.0); UMIC TRIGGER UA YES; Urine Blood Negative (Negative); Urine Ketones Negative (Negative); Urine Protein Negative (Neg-Trace)
[2023-11-11 12:16] LABS: Bacteria Urine 2+ (None Seen); RBC Urine 0-2 /HPF (0-2); Squamous Epithelial Cell Urine 0-2 /HPF (0-2); WBC Urine 21-50 /HPF (0-5)
== END 2023-11-11 12:05 | disposition home or self-care (01) ==
LOC: HO.HVNA 12:04
PROVIDERS: Visit Provider Internal Medicine
DX: R41.0 Disorientation, unspecified (principal)
CPT/HCPCS: 81001; 87086